=== PATIENT | female | born 1960 | race Caucasian/White ===

== ENCOUNTER → 2016-09-16 | Outpatient (CLI) | payer MEDICAID, OTHER ==
--- NOTE | 2016-09-17 13:43 | MM ---
Reason for exam: screening (asymptomatic). Last mammogram was performed 1 year and 2 months ago. History: Patient is postmenopausal and had first child at age 37. Physical Findings: A clinical breast exam by your physician is recommended on an annual basis and results should be correlated with mammographic findings. MG Screening Mammo w CAD Bilateral CC and MLO view(s) were taken. Prior study comparison: July 26, 2015, bilateral MG 3d screening mammo w/cad. December 21, 2014, right breast MG diagnostic mammo RT w CAD. There are scattered fibroglandular densities. There is chronic nodularity bilaterally. There is no dominant lesion. No significant changes when compared with prior studies. ASSESSMENT: Benign, BI-RAD 2 RECOMMENDATION: Routine screening mammogram of both breasts in 1 year.
== END | disposition home or self-care (01) ==
LOC: RADMAMWWP 09:52
PROVIDERS: ATTEND Internal Medicine
DX: Z12.31 Encounter for screening mammogram for malignant neoplasm of breast (principal)

== ENCOUNTER → 2017-04-03 | Outpatient (CLI) | payer MEDICAID, OTHER | END | disposition home or self-care (01) | LOC: LABPAT 12:41 | PROVIDERS: ATTEND Orthopaedic Surgery | DX: Z01.812 Encounter for preprocedural laboratory examination (principal) | CPT/HCPCS: 87070 ==

== ENCOUNTER 2017-04-20 09:29 | Inpatient (IN) | payer MEDICAID, OTHER ==
[2017-04-13 11:17] VITALS: BMI 44.1
--- NOTE | 2017-04-19 12:16 | HP ---
HISTORY AND PHYSICAL DATE OF SURGERY: 04/20/17 HISTORY OF PRESENT ILLNESS: Paloma Singh is a 56-year-old patient seen with progressive symptomatic right knee osteoarthritis. After having treatment options discussed, she elected to proceed with right total knee arthroplasty. Consent was obtained. Medical clearance was provided by Dr. Kumar. PAST MEDICAL HISTORY: Hypothyroidism and hypertension. PAST SURGICAL HISTORY: Knee arthroscopy, section. MEDICATIONS: 1. Thyroid. 2. Ibuprofen. 3. Moduretic. 4. Potassium. 5. Toprol. ALLERGIES: None reported. SOCIAL HISTORY: Patient denies tobacco use. PHYSICAL: Evaluation of the right knee range of motion is -3 to 120 degrees. Tenderness along the medial joint line. Positive medial Fuentes's. There is crepitus along the medial and patellofemoral compartments and range of motion. Pain with patellofemoral compression. Ligaments stable. Hip rotation without pain. Distal neurovascular exam is intact. RADIOGRAPHS: Of the right knee revealed severe medial and moderate to severe patellofemoral compartment osteoarthritis. IMPRESSION: Right knee osteoarthritis. PLAN: Right total knee arthroplasty. Surgery is scheduled for 04/20/2017. MMODL / IJN: [id number] /
[~2017-04-20 09:29] MED LIST: ACETAMINOPHEN TAB 500 MG TAB PO ONE; DEXAMETHASONE SOD PHOSPHATE 10 MG/ML 1 ML VIAL IV ONE; HYDROmorphone 0.5 MG/0.5 ML SYRINGE IVP PRN; MELOXICAM 7.5 MG TAB PO ONE; MIDAZOLAM 2 MG/2 ML VIAL IV PRN; ONDANSETRON 4 MG/2 ML VIAL IVP ONE; SCOPOLAMINE 1.5MG/72HR PATCH TRANSDERM ONE; TRANEXAMIC ACID 1,000 MG in SODIUM CHLORIDE 0.9% 100 ML IVPB ONE; ceFAZolin 2 GM in SODIUM CHLORIDE 0.9% 100 ML IVPB ONE
[2017-04-20] MEDS ORDERED: LACTATED RINGERS 1,000 ML IV ONE ×2 (11:16→14:06)
[2017-04-20 11:17] LABS: Glucose,Whole Blood 117 mg/dL (75-99)
[2017-04-20] MEDS ORDERED: MIDAZOLAM 2 MG/2 ML VIAL IVP ONE (12:10)
[2017-04-20] MEDS ORDERED: ROPIVACAINE 246.25 MG, EPINEPHrine 0.5 MG, KETOROLAC 30 MG, cloNIDine HCL/PF 80 MCG, WA... MISCELLANE ONE ×5 (12:20)
[2017-04-20] MEDS ORDERED: ROPIVACAINE 1,100 MG, SODIUM CHLORIDE 0.9% 330 ML MISCELLANE PRN ×2 (12:34)
--- NOTE | 2017-04-20 12:35 | P.ONQ ---
Anesthesiology Proc Note - PNB - Peripheral Nerve Block Performed Right Adductor Canal Indication: Acute Post-Operative Pain, Requested by physician (Dr Cronin) Sedation Type: Sedate with meaningful contact maintained Preparation: Sterile Dressing Position: Supine Catheter: Indwelling Needle Types: Other (see comment) (Gay) Needle Size: 100mm (4") Needle Gauge: 18 Technique: Ultrasound (20cc) Injectate: 0.5% Ropivacaine (see comment for volume) (20cc) Blood Aspirated: No Pain Paresthesia on Injection Noted: No Resistance on Injection: Normal Events: Uneventful and Well Tolerated
[2017-04-20] MEDS ORDERED: MIDAZOLAM 2 MG/2 ML VIAL ONE (13:14)
[2017-04-20] MEDS ORDERED: HYDROmorphone (PF) 1 MG/ML ONE (13:14)
[2017-04-20] MEDS ORDERED: LIDOCAINE 1% INJ 10MG/ML (20 ML MDV) ONE (13:14)
[2017-04-20] MEDS ORDERED: LABETALOL 5 MG/ML VIAL MDV ONE (13:14)
[2017-04-20] MEDS ORDERED: SODIUM CHLORIDE 0.9% 100 ML BAG ONE (13:14)
[2017-04-20] MEDS ORDERED: PROPOFOL 10 MG/ML 20 ML VIAL IV ONE (13:14)
[2017-04-20] MEDS ORDERED: TRANEXAMIC ACID 1,000 MG/10 ML VIAL ONE (13:14)
[2017-04-20] MEDS ORDERED: SUCCINYLCHOLINE CHLORIDE 100 MG/5 ML SYR IV ONE (13:14)
[2017-04-20] MEDS ORDERED: fentaNYL (PF) 50 MCG/ML 2 ML AMP ONE (13:14)
[2017-04-20] MEDS ORDERED: ceFAZolin 3,000 MG in SODIUM CHLORIDE 0.9% IRRIGATIO 3,000 ML IRRIGATION ONE (14:06)
[2017-04-20] MEDS ORDERED: HYDROmorphone 1 MG/ML 1 ML SYRINGE IVP PRN (15:46)
[2017-04-20] MEDS ORDERED: ONDANSETRON 4 MG/2 ML VIAL IVP PRN (15:46)
[2017-04-20] MEDS ORDERED: HYDROmorphone 0.5 MG/0.5 ML SYRINGE IVP PRN ×2 (15:46)
[2017-04-20] MEDS ORDERED: hydrOXYzine PAMOATE 25 MG CAP PO PRN (15:46)
[2017-04-20] MEDS ORDERED: HYDROcodone/APAP 7.5-325MG 1 EACH TAB PO PRN (15:46)
[2017-04-20] MEDS ORDERED: NALOXONE 0.4 MG/ML 1 ML VIAL IV PRN (15:46)
--- NOTE | 2017-04-20 15:46 | P.OP ---
Date of Procedure: 04/20/17 Preoperative Diagnosis: Right knee osteoarthritis Postoperative Diagnosis: Right knee osteoarthritis Procedure(s) Performed: Right total knee arthroplasty Implants: 1. Tangela persona size 5 right narrow cruciate retaining cemented femur 2. Tangela persona size C right cemented tibial tray 3. Tangela persona 16mm medial congruent polyethylene tibial insert 4. Tangela persona 28 mm all polyethylene cemented patella Anesthesia: regional (Adductor canal catheter), local, spinal Surgeon: Miguel Cronin Night Auditor #1: Mike Mcneal Estimated Blood Loss (ml): 200 Pathology: none sent (Bone) Condition: stable Disposition: PACU Indications for Procedure: 56-year-old patient seen with symptomatic right knee osteoarthritis. After treatment options were discussed, she elected to proceed with right total knee arthroplasty. Operative Findings: see description of procedure Description of Procedure: Patient was taken to the operative suite after having a adductor canal catheter placed by the department of anesthesia. Patient underwent a spinal anesthetic by the department of anesthesia. Patient was given preoperative IV intake antibiotics and TXA. A well-padded tourniquet was placed about the right lower extremity. The lower extremity was then prepped and draped in the normal sterile orthopedic fashion. A standard anterior incision was made sharply through skin. Dissection was taken down through the subcutaneous soft tissues down to the extensor mechanism. A medial arthrotomy was performed, patella was everted and knee was flexed. There was advanced osteoarthritis noted. A proximal tibial cutting guide was positioned. Proximal tibial cut was made. A distal intramedullary femoral cutting guide was positioned, distal femoral cut made. At this point the tourniquet was insufflated to 350. We placed the appropriate sizing guide and selected the appropriate size. A distal 4-in-1 femoral cutting block was positioned, distal femoral cuts were made. We now placed a trial femoral component into position, along with an appropriate size tibial tray and insert. We now took the knee through range of motion and had full extension good flexion and good overall soft tissue balance noted. The patella was everted and a flush cut made with patellar quad tendon. We templated the patella, appropriate drill holes were made. An appropriate trial patella was positioned, knee was taken through full range of motion with the patella tracking very nicely. The trial patella was removed. Drill holes were made through the femoral component. All trial components were removed after marking off the appropriate rotation of the tibia. Retractors were now positioned along the proximal tibia. An appropriate keel punch was made with the appropriate size tibial guide. At this point appropriate size implants were chosen and opened. The joint was irrigated copiously with pulse lavage mechanical irrigation. The deep soft tissues were infiltrated local analgesic. We mixed antibiotic methylmethacrylate. Once the methyl methacrylate was ready, the tibial component was cemented into place removing any excess methylmethacrylate. The femoral component was cemented into place removing the removing any excess methylmethacrylate. We then inserted the appropriate size polyethylene tibial insert. We made sure that it was locked into position. We took the knee into full extension, and then back in a flexion making sure we had removed any excess methylmethacrylate. He did note at this point some hyperextension of the joint but decided to go ahead and proceed with achieving good cement fixation. The patellar component was then cemented down and secured with clamp. Excess methylmethacrylate removed. We kept the knee in full extension, patellar clamp in position until methylmethacrylate had hardened. Once it had hardened the patellar clamp was removed. The knee was taken through full range of motion. The patella tracked nicely. Again noted hyperextension. At this point the polyethylene tibial insert was removed. We placed a couple of trials getting ourselves to the correct size making sure we had good stability especially at terminal extension. We opened up the appropriate size polyethylene tibial insert and secured it. We now again took the knee through range of motion. We have full extension. There was good soft tissue balancing. The tourniquet was now released. Additional hemostasis was achieved via electrocautery. I can gram of TXA was given. The superficial soft tissues were infiltrated local analgesic. The extensor mechanism was repaired with Vicryl. We checked the repair with range of motion and it was stable. The subcutaneous soft tissues were repaired with Vicryl in layers. The skin was approximated with pernio/Dermabond. Sterile dressings were applied followed by loose web roll and Ad bandage. The patient was transferred to a bed, and taken to recovery in stable and satisfactory condition. Cleve UMANA assisted with the procedure.
--- NOTE | 2017-04-20 16:15 | XR ---
EXAMINATION TYPE: XR knee limited RT DATE OF EXAM: 04/20/2017 CLINICAL HISTORY: Postoperative evaluation Two views of the right knee are submitted. Identified are changes of total knee arthroplasty with femoral and tibial components appearing well seated. Postsurgical soft tissue changes are noted. Alignment is anatomic.
[2017-04-20 16:50] LABS: Glucose,Whole Blood 175 mg/dL (75-99)
[2017-04-20] MEDS: LACTATED RINGERS 1,000 ML IV SCH ×3 (18:08→20:06)
[2017-04-20] MEDS: traMADol 50 MG TAB PO SCH ×2 (18:11→20:44)
[2017-04-20] MEDS: ceFAZolin 2 GM in SODIUM CHLORIDE 0.9% 100 ML IVPB SCH (20:06)
[2017-04-20 20:08] LABS: Glucose,Whole Blood 150 mg/dL (75-99)
[2017-04-20] MEDS: INSULIN LISPRO (humaLOG) 300 UNIT/3 ML VIAL SQ SCH (20:44)
[2017-04-20] MEDS ORDERED: SENNOSIDES-DOCUSATE SODIUM 1 EACH TAB PO SCH (21:00)
[2017-04-21] MEDS: HYDROcodone/APAP 7.5-325MG 1 EACH TAB PO PRN ×3 (01:06→13:55)
[2017-04-21] MEDS: LACTATED RINGERS 1,000 ML IV SCH (05:40)
[2017-04-21] MEDS: ceFAZolin 2 GM in SODIUM CHLORIDE 0.9% 100 ML IVPB SCH (05:47)
--- NOTE | 2017-04-21 06:14 | P.PN ---
Progress Note - Text The patient is status post right adductor canal catheter placement. The catheter was placed for postoperative pain control, status post total right arthroplasty. Ropivacaine 0.2% is infusing at 8 mLs per hour. The patient has no complaints of right lower extremity numbness or weakness. Patient's VAS score is 0-1 -10. Assessment: Patient's adductor canal catheter is in place and working appropriately. Plan: continue infusion and adjust it as needed.
[2017-04-21 07:01] LABS: Glucose,Whole Blood 121 mg/dL (75-99)
[2017-04-21 07:25] LABS: Basophils % (A) 0 %; CH 29.6; CHCM 31.1; Eosinophils % (A) 0 %; HCT 35.1 % (34.0-46.0); HDW 2.34; HGB 11.1 gm/dL (11.4-16.0); Hypochromasia Slight; Luc # (Auto) 0.33; Luc % (Auto) 2; Lymphocytes # (A) 3.1 k/uL (1.0-4.8); Lymphocytes % (A) 22 %; MCH 30.4 pg (25.0-35.0); MCHC 31.8 g/dL (31.0-37.0); MCV 95.8 fL (80.0-100.0); Monocytes # (A) 0.8 k/uL (0-1.0); Monocytes % (A) 6 %; Neutrophils # (A) 9.6 k/uL (1.3-7.7); Neutrophils % (A) 69 %; RBC 3.66 m/uL (3.80-5.40); RDW 12.8 % (11.5-15.5); WBC (Perox) 14.75
[2017-04-21] MEDS ORDERED: metFORMIN 500 MG TAB PO SCH (07:30)
--- NOTE | 2017-04-21 07:33 | CONS ---
CONSULTATION DATE OF SERVICE: 04/20/2017 REASON FOR CONSULTATION: Advice regarding diabetes mellitus and other medications requested by Dr. Cronin. HISTORY OF PRESENT ILLNESS: This 56-year-old woman with past medical history of diabetes mellitus, hypertension, hyperlipidemia being followed by Dr. Kumar in the outpatient setting admitted after right knee joint arthroplasty. The blood sugars are between 150 and 160. There is no history of fever, rigors. No history of headache, loss of conscious or seizures. PAST MEDICAL HISTORY: 1. Diabetes. 2. Hypertension. 3. Hyperlipidemia. 4. History of degenerative joint disease. MEDICATIONS: Prior to admission include home medications: 1. Glucophage 1000 mg p.o. daily. 2. Moduretic 1 tab q.48h. 3. [place] thyroid 120 mg q.a.m. 4. Klor-Con 10 mEq q.a.m. 5. Multivitamins 1 p.o. daily. 6. Toprol-XL 25 mg q.h.s. 7. Advil 800 mg q.6h p.r.n. 8. TUMs 500 to 1000 mg t.i.d. p.r.n. 9. Biotin 5 mg p.o. daily. 10.Tylenol 325 to 650 q.4-6h p.r.n. ALLERGIES: None. FAMILY HISTORY: No history of heart disease or strokes in the family. SOCIAL HISTORY: No history of smoking. Occasional alcohol intake. REVIEW OF SYSTEMS: ENT: No diminished hearing or vision. CARDIOVASCULAR: No angina. RESPIRATION: No cough. GI: No nausea. : No dysuria. NERVOUS SYSTEM: No numbness or weakness. ALLERGY/IMMUNOLOGY: No asthma or hayfever. MUSCULOSKELETAL: As mentioned. HEMATOLOGY: No history of anemia. ENDOCRINE: As mentioned earlier. CONSTITUTIONAL: As mentioned earlier. DERMATOLOGY: Negative. RHEUMATOLOGY: Negative. PSYCHIATRY: As mentioned earlier. PHYSICAL EXAM: Patient is alert, oriented. Pulse is 91, blood pressure 130/66, respirations 16, temperature is normal. Pulse ox 99% on 3 L. HEENT: Conjunctivae normal. Oral mucosa moist. NECK: No jugular venous distention. No carotid bruit. No lymph node enlargement. CARDIOVASCULAR: S1, S2. RESPIRATORY: Breath sounds diminished in the bases. No rhonchi. No crackles. ABDOMEN: Soft, nontender. LEGS: Status post left knee arthroplasty. NERVOUS SYSTEM: Higher function as mentioned. Moves all four limbs. No focal motor sensory deficits. LYMPHATICS: No lymphadenopathy in the neck, axillae or groin. SKIN: No rash, ulcer or bleeding. LAB: CBC within normal limits. BMP showed AST and ALT 48 and 54 and cholesterol is 221. ASSESSMENT: 1. Status post right total knee arthroplasty. 2. Hypertension. 3. Diabetes type 2. 4. Hyperlipidemia. 5. History of degenerative joint disease. 6. Hypothyroidism. 7. History of cholecystectomy. RECOMMENDATIONS AND DISCUSSION: I recommend to continue current management and symptomatic treatment. Recommend resume the home medications. Accu-Cheks a.c. and q.h.s. and insulin scale. DVT prophylaxis. Will follow the patient closely with you and the patient may be asked to follow with Dr. Kumar closely after discharge. Thank you for letting us participate in the care of this patient. NICOLE / MARU: [id number] /
[2017-04-21] MEDS: traMADol 50 MG TAB PO SCH ×3 (07:52→17:39)
[2017-04-21] MEDS: INSULIN LISPRO (humaLOG) 300 UNIT/3 ML VIAL SQ SCH ×3 (08:49→17:39)
[2017-04-21] MEDS ORDERED: THYROID, PORK 30 MG TAB PO SCH (09:00)
[2017-04-21] MEDS ORDERED: POTASSIUM CHLORIDE ER 20 MEQ TAB.ER PO SCH (09:00)
[2017-04-21] MEDS ORDERED: aMILoride-HCTZ 5-50 mg 1 EACH TAB PO SCH (09:00)
[2017-04-21] MEDS ORDERED: MELOXICAM 7.5 MG TAB PO SCH (09:00)
[2017-04-21] MEDS ORDERED: FAMOTIDINE 20 MG TAB PO SCH (09:00)
[2017-04-21] MEDS ORDERED: ENOXAPARIN 30 MG/0.3 ML SYRINGE SQ SCH (09:00)
[2017-04-21] MEDS ORDERED: METOPROLOL SUCCINATE (ER) 25 MG TAB.ER.24H PO SCH (09:00)
[2017-04-21 10:13] LABS: Hemoglobin A1C 6.2 % (4.2-6.1)
[2017-04-21 10:30] LABS: Anion Gap 9 mmol/L; Blood Urea Nitrogen 13 mg/dL (7-17); Calcium 8.7 mg/dL (8.4-10.2); Carbon Dioxide 23 mmol/L (22-30); Chloride 108 mmol/L (98-107); Glucose 115 mg/dL (74-99); Non-African American GFR(MDRD) >60 (>60 ml/min/1.73 sqM); Sodium 140 mmol/L (137-145)
[2017-04-21 11:11] VITALS: RESP 16; TEMP 99
[2017-04-21 11:25] LABS: Glucose,Whole Blood 132 mg/dL (75-99)
[2017-04-21 12:52] LABS: Appearance,Urine Cloudy (Clear); Bacteria,Urine Occasional /hpf; Bilirubin,Urine Negative (Negative); Glucose,Urine (UA) Negative (Negative); Ketones,Urine Negative (Negative); Leukocyte Esterase,Urine Large (Negative); Nitrite,Urine Negative (Negative); Particle Count 2797; Protein,Urine Negative (Negative); RBC,Urine 3 /hpf (0-5); Specific Gravity,Urine 1.022 (1.001-1.035); Squamous Epithelial Cell,Urine 13 /hpf (0-4); UA Billing (MACRO vs. MICRO) MICRO; Urobilinogen,Urine <2.0 mg/dL (<2.0); WBC,Urine 17 /hpf (0-5)
--- NOTE | 2017-04-21 13:28 | P.PN ---
Subjective Principal diagnosis: Status post right total knee arthroplasty Patient seen today resting in her hospital bed, she appears comfortable. She does have some family side. She's ambulated well with therapy. Urinary cath was discontinued. She denies any headaches, lightheadedness, chest pain, shortness of breath. Objective - Vital Signs Vital signs: Vital Signs Temp 99.0 F 04/21/17 11:10 Pulse 76 04/21/17 11:10 Resp 16 04/21/17 11:10 BP 90/48 04/21/17 11:10 Pulse Ox 95 04/21/17 11:10 Intake & Output 04/20/17 04/21/17 04/21/17 18:59 06:59 18:59 Intake Total 1701 850 Output Total 410 325 180 Balance 1291 525 -180 Weight 112.945 kg Intake: IV 1701 Intake, IV Titration 450 Amount Lactated Ringers 1,000 ml 350 @ 100 mls/hr IV .Q10H ANTHONY Rx#:[id number] ceFAZolin 2 gm In Sodium 100 Chloride 0.9% 100 ml @ 100 mls/hr IVPB Q8H ANTHONY Rx#:[id number] Oral 400 Output: Urine 210 325 180 Uretheral ([place]) 325 180 Estimated Blood Loss 200 Other: Voiding Method Indwelling Catheter Indwelling Catheter Indwelling Catheter - Exam Right lower extremity: Incision is clean, dry and intact. Minimal soft tissue swelling present around the knee. Calf is soft, tenderness with palpation. Plantar flexion, dorsiflexion, EHL, FHL are intact. Sensory exam to light touch throughout the extremities intact, dorsal pedis pulses 2+ - Labs CBC & Chem 7: 04/21/17 06:35 04/21/17 06:35 Labs: Abnormal Lab Results - Last 24 Hours (Table) 04/20/17 04/20/17 04/21/17 Range/Units 16:47 20:05 06:35 WBC (3.8-10.6) k/uL RBC (3.80-5.40) m/uL Hgb (11.4-16.0) gm/dL Neutrophils # (1.3-7.7) k/uL Chloride (98-107) mmol/L Glucose (74-99) mg/dL POC Glucose (mg/dL) 175 H 150 H (75-99) mg/dL Hemoglobin A1c 6.2 H (4.2-6.1) % Urine Appearance (Clear) Ur Leukocyte Esterase (Negative) Urine WBC (0-5) /hpf Ur Squamous Epith Cells (0-4) /hpf Urine Bacteria (None) /hpf 04/21/17 04/21/17 04/21/17 Range/Units 06:35 06:35 06:50 WBC 14.0 H (3.8-10.6) k/uL RBC 3.66 L (3.80-5.40) m/uL Hgb 11.1 L (11.4-16.0) gm/dL Neutrophils # 9.6 H (1.3-7.7) k/uL Chloride 108 H (98-107) mmol/L Glucose 115 H (74-99) mg/dL POC Glucose (mg/dL) 121 H (75-99) mg/dL Hemoglobin A1c (4.2-6.1) % Urine Appearance (Clear) Ur Leukocyte Esterase (Negative) Urine WBC (0-5) /hpf Ur Squamous Epith Cells (0-4) /hpf Urine Bacteria (None) /hpf 04/21/17 04/21/17 Range/Units 11:00 11:21 WBC (3.8-10.6) k/uL RBC (3.80-5.40) m/uL Hgb (11.4-16.0) gm/dL Neutrophils # (1.3-7.7) k/uL Chloride (98-107) mmol/L Glucose (74-99) mg/dL POC Glucose (mg/dL) 132 H (75-99) mg/dL Hemoglobin A1c (4.2-6.1) % Urine Appearance Cloudy H (Clear) Ur Leukocyte Esterase Large H (Negative) Urine WBC 17 H (0-5) /hpf Ur Squamous Epith Cells 13 H (0-4) /hpf Urine Bacteria Occasional H (None) /hpf Assessment and Plan Plan: Assessment: 1. Postop day 1 status post right total knee arthroplasty Plan: 1. Pain control, utilize oral medication 2. Continue work with therapy and use of CPM 3. Wound care instructions discussed, including showering 4. GI and DVT prophylaxis, utilizing aspirin 325 mg twice a day 5. Medical recommendations 6. Discharge planning: Patient may be discharged home today Time with Patient: Less than 30
--- NOTE | 2017-04-21 13:33 | P.DS ---
Providers Date of admission: 04/20/17 10:51 Expected date of discharge: 04/21/17 Attending physician: Miguel Cronin Consults: 04/20/17 15:46 Consult Physician Routine Consulting Provider: Diane Auguste Consult Reason/Comments: Medical management Do you want consulting provider notified?: Yes Primary care physician: Priscilla Kumar Hospital Course: Date of admission: 04/20/2017 Date of discharge: 04/21/2017 Admission diagnosis: Status post right total knee arthroplasty Discharge diagnosis: Same Attending physician: Dr. Cronin Surgical procedures: Right total knee arthroplasty Brief history: Patient is a 56-year-old female with a history of progressive primary right knee osteoarthritis. At this point patient has failed conservative treatment measures and has opted to proceed with a elective right total knee arthroplasty. Hospital course: Details of patient's surgery can be found in operative report. Patient tolerated the procedure well and was subsequently transported to orthopedic floor. Patient's orthopeidc and medical care was provided daily. Patient had daily laboratory tests performed for evaluation of overall blood counts. Patient had daily physical therapy to include strengthening range of motion as well as education with walker ambulation. Patient had daily CPM usage as part of their physical therapy program. Patient was treated with Lovenox for their postoperative DVT prophylaxis during their inpatient stay. Patient was noted to have a relatively uneventful postoperative course. Patient reported satisfactory pain control with oral pain medications by postoperative day 0. Patient showed satisfactory progress with physical therapy. Patient moved steadily through the program and had no difficulty meeting the goals by postoperative day 1. Given patient's otherwise satisfactory course and having met physical therapy goals, plan is to discharge patient home on postoperative day 1. Discharge condition/disposition: Patient will be discharged home in stable condition. Discharge medications: Instructions are given on resumption of patient's normal daily medications per primary care recommendation, in addition patient will be prescribed [place] 7.5 mg/325 mg, tramadol 50 mg, Colace 100 mg, aspirin 325 mg. Discharge instructions: 1. Wound care and infection precautions, keep incision dry and covered while showering, no lotions, creams, moisturizers. No soaking, tubs, pools, hottubs. Do not scrub over the incision. 2. Weight-bear as tolerated with walker / cane until follow-up. 3. Ice and elevate when necessary. Do not exceed 20 minutes per hour with ice pack. 4. Utilize compression sleeve until seen at first follow up appointment. 5. Visiting nursing care. 6. Home physical therapy including home CPM. 7. Pain meds and anticoagulants per prescription. 8. Pain medication has potential to cause constipation. Increase oral fluid and fiber intake. Contact primary care provider if you have not had a bowel movement within 48 hours after discharge 9. No anti-inflammatory medication until discussed at first post operative visit, this including Motrin, Aleve, Mobic, Diclofenac. 10. Follow up in office at 2 weeks postop with Cleve Mcneal PA-C 11. Follow up with your primary care doctor 7-10 days after discharge. 12. Contact [facility] with any questions, . Procedures: Right total knee arthroplasty Patient Condition at Discharge: Good Plan - Discharge Summary New Discharge Prescriptions: New Aspirin 325 mg PO BID #60 tab Docusate [Colace] 100 mg PO DAILY #30 capsule HYDROcodone/APAP 7.5-325MG [[place] 7.5] 1 - 2 each PO Q6HR PRN #60 tab PRN Reason: Pain traMADol HCl [Ultram] 50 mg PO Q6H PRN #40 tab PRN Reason: Pain Levofloxacin [Levaquin] 500 mg PO DAILY #4 tab No Action Metoprolol Succinate (ER) [Toprol XL] 25 mg PO QAM aMILoride-HCTZ 5-50 mg [Moduretic 5-50] 1 tab PO Q48H Acetaminophen Tab [Tylenol] 325 - 650 mg PO Q4-6H PRN PRN Reason: Pain Biotin 5 mg PO DAILY Multivitamins, Thera [Multivitamin] 1 tab PO DAILY Potassium Chloride [Klor-Con 20] 20 meq PO QAM Thyroid,Pork [Urich Thyroid] 120 mg PO QAM Calcium Carbonate [Tums] 500 - 1,000 mg PO TID PRN PRN Reason: Indigestion metFORMIN HCL [Glucophage] 1,000 mg PO DAILY Discharge Medication List Acetaminophen Tab [Tylenol] 325 - 650 mg PO Q4-6H PRN 10/16/15 [History] Biotin 5 mg PO DAILY 10/16/15 [History] Metoprolol Succinate (ER) [Toprol XL] 25 mg PO QAM 10/16/15 [History] Multivitamins, Thera [Multivitamin] 1 tab PO DAILY 10/16/15 [History] Potassium Chloride [Klor-Con 20] 20 meq PO QAM 10/16/15 [History] Thyroid,Pork [Urich Thyroid] 120 mg PO QAM 10/16/15 [History] aMILoride-HCTZ 5-50 mg [Moduretic 5-50] 1 tab PO Q48H 10/16/15 [History] Calcium Carbonate [Tums] 500 - 1,000 mg PO TID PRN 04/13/17 [History] metFORMIN HCL [Glucophage] 1,000 mg PO DAILY 04/13/17 [History] Aspirin 325 mg PO BID #60 tab 04/21/17 [Rx] Docusate [Colace] 100 mg PO DAILY #30 capsule 04/21/17 [Rx] HYDROcodone/APAP 7.5-325MG [[place] 7.5] 1 - 2 each PO Q6HR PRN #60 tab 04/21/17 [ Rx] Levofloxacin [Levaquin] 500 mg PO DAILY #4 tab 04/21/17 [Rx] traMADol HCl [Ultram] 50 mg PO Q6H PRN #40 tab 04/21/17 [Rx] Follow up Appointment(s)/Referral(s): Mike Mcneal PAC [PHYSICIAN [facility]] - 05/06/17 1:50 pm [facility], [REFERRING] - Patient Instructions/Handouts: *Surgery [facility] - Scopalamine Patch Instructions Activity/Diet/Wound Care/Special Instructions: CPM through [facility]. Please call when arrive home. [phone]. Orthopedic Discharge Instructions: 1. Wound care and infection precautions, keep incision dry and covered while showering, no lotions, creams, moisturizers. No soaking, pools, hot tubs. Do not scrub over incision. 2. Weight-bear as tolerated with walker / cane until follow-up. 3. Ice and elevate when necessary. Do not exceed 20 minutes per hour with ice pack. 4. Utilize compression sleeve until seen at first follow up appointment. 5. Visiting nursing care. 6. Home physical therapy including home CPM. 7. Pain meds and anticoagulants per prescription. 8. Pain medication has potential to cause constipation. Increase oral fluid and fiber intake. Contact primary care provider if you have not had a bowel movement within 48 hours after discharge. 9. No anti-inflammatory medication until discussed at first post operative visit, this including Motrin, Aleve, Mobic, Diclofenac. 10. Follow up in office at 2 weeks postop with Cleve Mcneal PA-C 11. Follow up with your primary care doctor 7-10 days after discharge. 12. Contact [facility] with any questions, . Discharge Disposition: HOME WITH HOME HEALTH SERVICES
[2017-04-21 15:15] VITALS: BP 129/63; PULSE 82
[2017-04-21 16:53] LABS: Glucose,Whole Blood 140 mg/dL (75-99)
--- NOTE | 2017-04-21 19:12 | PN ---
PROGRESS NOTE DATE OF SERVICE: 04/21/2017 INTERVAL HISTORY: This 56-year-old woman who was admitted after right total knee arthroplasty is closely monitored. No chest pain. No palpitations. No fever. White count is elevated. PHYSICAL EXAMINATION: On exam, alert, oriented. Pulse 76, blood pressure 98/42, respirations 16, temperature 98 degrees, pulse ox 94% room air. HEENT: Conjunctivae normal. NECK: No jugular venous distention. CARDIOVASCULAR: S1, S2. RESPIRATORY: Breath sounds diminished at the bases. No rhonchi. No crackles. ABDOMEN: Soft, nontender. No mass palpable. LEGS: Status post surgery. NERVOUS SYSTEM: No focal abscess. WBC 14. UA noted. Possibly UTI. ASSESSMENT: 1. Status post right arthroplasty. 2. Possibly urinary tract infection. 3. Hypertension. 4. Diabetes mellitus type 2. 5. Hyperlipidemia. 6. History of degenerative joint disease. 7. Hypothyroidism. 8. History of cholecystectomy. RECOMMENDATIONS AND DISCUSSION: I recommend to continue the current management, continue symptomatic treatment. Otherwise at this time I would recommend to continue course of antibiotics and followup labs in the outpatient setting. Further recommendations to follow. MMODL / IJN: [id number] /
== END 2017-04-21 18:25 | disposition home health service (06) | DRG 470 ==
LOC: 2ORMAIN 10:51 → 3SUR 15:38
PROVIDERS: ADMIT Orthopaedic Surgery; ATTEND Orthopaedic Surgery
PROC: 0SRC0J9 Replacement of Right Knee Joint with Synthetic Substitute, Cemented, Open Approach (ICD-10-PCS; principal; 2017-04-20 12:40)
DX: M17.11 Unilateral primary osteoarthritis, right knee (principal); I10 Essential (primary) hypertension; E03.9 Hypothyroidism, unspecified; E11.9 Type 2 diabetes mellitus without complications; E78.5 Hyperlipidemia, unspecified; Z79.84 Long term (current) use of oral hypoglycemic drugs
CPT/HCPCS: 80048; 81001; 83036; 85025; 88300

== ENCOUNTER 2017-08-10 09:04 | Day surgery (SDC) | payer MEDICAID, OTHER ==
[2017-08-06 09:18] VITALS: BMI 42.8
--- NOTE | 2017-08-09 13:38 | HP ---
HISTORY AND PHYSICAL Surgery is scheduled for 08/10/2017. Paloma Singh is a 56-year-old patient seen with right knee adhesions with previously having undergone right total knee arthroplasty. Options were discussed. She elected to proceed with manipulation under anesthesia, right knee with steroid injection. Consent regarding the procedure was obtained. PAST MEDICAL HISTORY: Hypertension, hypothyroidism. PAST SURGICAL HISTORY: section, knee arthroscopy, total knee arthroplasty. DAILY MEDICATIONS: Thyroid, ibuprofen, Moduretic, potassium, Toprol. ALLERGIES: None reported. SOCIAL HISTORY: Patient denies current tobacco use. PHYSICAL EXAMINATION: Evaluation right knee: There is a well-healed anterior incision. Range of motion is - 1/2 to 95. Ligaments stable. Hip rotation without pain. Distal neurovascular exam intact. Right knee radiographs revealed a stable appearing total knee arthroplasty. IMPRESSION: 1. Right knee adhesions, status post right total knee arthroplasty. 2. Hypertension. 3. Hypothyroidism. PLAN: Manipulation under anesthesia, right knee with steroid injection. MMODL / IJN: [id number] /
[~2017-08-10 09:04] MED LIST changes: -ACETAMINOPHEN TAB 500 MG TAB PO ONE; -HYDROmorphone 0.5 MG/0.5 ML SYRINGE IVP PRN; +LACTATED RINGERS 1,000 ML IV SCH; -MELOXICAM 7.5 MG TAB PO ONE; +MORPHINE SULFATE 4 MG/ML SYRINGE IV PRN; -TRANEXAMIC ACID 1,000 MG in SODIUM CHLORIDE 0.9% 100 ML IVPB ONE; -ceFAZolin 2 GM in SODIUM CHLORIDE 0.9% 100 ML IVPB ONE; +ceFAZolin IN SWFI 2 GM/20 ML SYRINGE IVP ONE
[2017-08-10 09:24] LABS: Glucose,Whole Blood 112 mg/dL (75-99)
[2017-08-10] MEDS ORDERED: LIDOCAINE 1% 20 ML VIAL (10MG/ML) FOR IV START INTRADERMA ONE (09:26)
[2017-08-10] MEDS ORDERED: fentaNYL (PF) 50 MCG/ML 2 ML AMP ONE (09:50)
[2017-08-10] MEDS ORDERED: PROPOFOL 10 MG/ML 20 ML VIAL IV ONE (09:50)
[2017-08-10] MEDS ORDERED: MIDAZOLAM 2 MG/2 ML VIAL ONE (09:50)
[2017-08-10] MEDS ORDERED: BUPIVACAINE (PF) 0.25% 30 ML VIAL MISCELLANE ONE (09:50)
[2017-08-10] MEDS ORDERED: TRIAMCINOLONE ACETONIDE 40 MG/ML 1 ML VIAL INTRAARTIC ONE (09:50)
[2017-08-10] MEDS ORDERED: TRIAMCINOLONE ACETONIDE 40 MG/ML 1 ML VIAL ONE ×2 (09:50)
--- NOTE | 2017-08-10 10:03 | P.OP ---
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 I recommended manipulation under anesthesia right knee with steroid injection, patient was agreeable and consent was obtained. Operative Findings: See description of procedure Description of Procedure: The patient was taken to a monitored anesthesia area. The patient received IV sedation by the primary anesthesia. The patient received preoperative IV antibiotics. When sufficient anesthesia was achieved, a manipulation of the right knee was performed achieving full extension and 135 of flexion. The superior lateral aspect of the right knee was prepped and draped in the normal sterile orthopedic fashion. I injected a solution 1 mL Depo-Medrol and 3 mL quarter percent plain Marcaine. I now took the knee through range of motion again. I applied a sterile Band-Aid. The patient was then awakened having tolerated the procedure well.
[2017-08-10] MEDS: HYDROmorphone 1 MG/ML 1 ML SYRINGE IVP ONE ×3 (10:10→10:25)
[2017-08-10 10:15] VITALS: TEMP 98.5
[2017-08-10] MEDS ORDERED: KETOROLAC 30 MG/ML 1 ML VIAL IVP ONE (10:33)
[2017-08-10 10:51] VITALS: RESP 18
[2017-08-10 10:51] LABS: Glucose,Whole Blood 132 mg/dL (75-99)
[2017-08-10 11:03] VITALS: BP 113/61; PULSE 91
== END 2017-08-10 11:37 | disposition home or self-care (01) ==
LOC: OR 09:04
PROVIDERS: ATTEND Orthopaedic Surgery
DX: M23.8X1 Other internal derangements of right knee (principal); I10 Essential (primary) hypertension; E03.9 Hypothyroidism, unspecified; K21.9 Gastro-esophageal reflux disease without esophagitis; E11.9 Type 2 diabetes mellitus without complications; Z79.84 Long term (current) use of oral hypoglycemic drugs; Z79.1 Long term (current) use of non-steroidal anti-inflammatories (NSAID); Z79.899 Other long term (current) drug therapy
CPT/HCPCS: 84132; 27570; J2250; J1100; J2405; J3010; J1885; J1170; J2704

== ENCOUNTER → 2017-12-15 | Outpatient (CLI) | payer MEDICAID, OTHER | END | disposition home or self-care (01) | LOC: RADMRIMAIN 09:37 | PROVIDERS: ATTEND Orthopaedic Surgery | DX: Z53.9 Procedure and treatment not carried out, unspecified reason (principal) ==

== ENCOUNTER → 2018-01-19 | Outpatient (CLI) | payer MEDICAID, OTHER ==
--- NOTE | 2018-01-21 11:39 | MM ---
Reason for exam: screening (asymptomatic). Last mammogram was performed 1 year and 4 months ago. History: Patient is postmenopausal and had first child at age 37. Physical Findings: A clinical breast exam by your physician is recommended on an annual basis and results should be correlated with mammographic findings. MG Screening Mammo w CAD Bilateral CC and MLO view(s) were taken. Prior study comparison: September 16, 2016, bilateral MG screening mammo w CAD. July 26, 2015, bilateral MG 3d screening mammo w/cad. There are scattered fibroglandular densities. There is chronic nodularity bilaterally. No significant changes when compared with prior studies. ASSESSMENT: Benign, BI-RAD 2 RECOMMENDATION: Routine screening mammogram of both breasts in 1 year.
== END | disposition home or self-care (01) ==
LOC: RADMAMWWP 14:40
PROVIDERS: ATTEND Internal Medicine
DX: Z12.31 Encounter for screening mammogram for malignant neoplasm of breast (principal)
CPT/HCPCS: 77067

== ENCOUNTER → 2018-06-16 | Outpatient (CLI) | payer MEDICAID, OTHER ==
--- NOTE | 2018-06-16 08:23 | US ---
EXAMINATION TYPE: US liver DATE OF EXAM: 06/16/2018 COMPARISON: NONE CLINICAL HISTORY: K76.89 Abnormal liver function. EXAM MEASUREMENTS: Liver Length: 16.3 cm Gallbladder Wall: Surgically absent cm CBD: 0.4 cm Right Kidney: 10.2 x 6.4 x 5.0 cm Pancreas: Partially Obscured by bowel gas Liver: Partially Obscured by overlying bowel gas Gallbladder: Surgically absent Evidence for sonographic Carroll's sign: No CBD: wnl Right Kidney: wnl Suboptimal exam overall d/t large patient size and large amounts of bowel gas. IMPRESSION: Limited examination. No distinct abnormality appreciated.
== END ==
LOC: RADUSWWP 07:27
PROVIDERS: ATTEND Internal Medicine
DX: K76.89 Other specified diseases of liver (principal)
CPT/HCPCS: 76705

== ENCOUNTER → 2020-06-07 | Outpatient (CLI) | payer OTHER ==
--- NOTE | 2020-06-11 08:52 | MM ---
Reason for exam: screening (asymptomatic). Last mammogram was performed 2 years and 5 months ago. History: Patient is postmenopausal and had first child at age 37. Physical Findings: A clinical breast exam by your physician is recommended on an annual basis and results should be correlated with mammographic findings. MG Screening Mammo w CAD Bilateral CC, MLO, and XCCL view(s) were taken. Prior study comparison: January 19, 2018, bilateral MG screening mammo w CAD. September 16, 2016, bilateral MG screening mammo w CAD. There are scattered fibroglandular densities. There is chronic nodularity bilaterally. No significant changes when compared with prior studies. ASSESSMENT: Benign, BI-RAD 2 RECOMMENDATION: Routine screening mammogram of both breasts in 1 year.
== END | disposition home or self-care (01) ==
LOC: RADMAMWWP 13:16
PROVIDERS: ATTEND Internal Medicine
DX: Z12.31 Encounter for screening mammogram for malignant neoplasm of breast (principal)
CPT/HCPCS: 77067

== ENCOUNTER → 2021-09-04 | Outpatient (CLI) | payer OTHER ==
--- NOTE | 2021-09-05 14:18 | MM ---
Reason for exam: screening (asymptomatic). Last mammogram was performed 1 year and 3 months ago. History: Patient is postmenopausal and had first child at age 37. Physical Findings: A clinical breast exam by your physician is recommended on an annual basis and results should be correlated with mammographic findings. MG 3D Screening Mammo W/Cad Bilateral CC and MLO view(s) were taken. Prior study comparison: June 07, 2020, bilateral MG screening mammo w CAD. January 19, 2018, bilateral MG screening mammo w CAD. There are scattered fibroglandular densities. There is chronic nodularity bilaterally. There is no discrete abnormality. ASSESSMENT: Benign, BI-RAD 2 RECOMMENDATION: Routine screening mammogram of both breasts in 1 year.
== END | disposition home or self-care (01) ==
LOC: RADMAMWWP 11:19
PROVIDERS: ATTEND Family Medicine
DX: Z12.31 Encounter for screening mammogram for malignant neoplasm of breast (principal); Z78.0 Asymptomatic menopausal state
CPT/HCPCS: 77063; 77067

== ENCOUNTER → 2022-10-27 | Outpatient (CLI) | payer BC, OTHER ==
--- NOTE | 2022-11-03 23:00 | HM ---
HOLTER MONITOR REPORT STUDY PERFORMED: A 24-hour Holter. INDICATION: Palpitations. Underlying rhythm is sinus with an average heart rate of 89 beats per minute. Heart rate varied from 50 beats per minute to 140 beats per minute. The episode of tachycardia seems to be an episode of sinus tachycardia. Occasional PACs are noted. There were no episodes of sustained ventricular or supraventricular tachyarrhythmias. No episodes of more than 2-second pauses. CONCLUSION: This 24-hour Holter reveals sinus rhythm with episodes of sinus tachycardia. MMODL / IJN: [id number] /
== END | disposition home or self-care (01) ==
LOC: RADECHMAIN 07:55
PROVIDERS: ATTEND Family Medicine
DX: R00.0 Tachycardia, unspecified (principal); R00.2 Palpitations; I10 Essential (primary) hypertension
CPT/HCPCS: 93225; 93226

== ENCOUNTER → 2024-06-24 | Outpatient (CLI) | payer BC ==
--- NOTE | 2024-06-27 09:05 | MM ---
Reason for Exam: Screening (asymptomatic). Last mammogram was performed 1 year(s) and 3 month(s) ago. Patient History: Menarche at age 11. First Full-Term at age 37. Late child-bearing (after 30). Postmenopausal. Risk Values: Melly 5 year model risk: 2.2%. NCI Lifetime model risk: 8.9%. Prior Study Comparison: 06/07/2020 Bilateral Screening Mammogram, [facility]. 09/04/2021 Bilateral Screening Mammogram, [facility]. 04/17/2023 Bilateral MG 3D screening mammo w/cad, [facility]. Tissue Density: There are scattered areas of fibroglandular density. Findings: Analyzed By CAD. Right breast: There is no suspicious group of microcalcifications or new suspicious mass. Benign-appearing calcifications right breast. Stable fibroglandular tissue. Left breast: There is no suspicious group of microcalcifications or new suspicious mass. Benign-appearing calcifications left breast. Stable fibroglandular tissue. Overall Assessment: Benign, BI-RAD 2 Management: Screening Mammogram of both breasts in [address] [facility] will attempt to contact patient to return for supplemental views and ultrasound if indicated. Patient should continue monthly self-breast exams. A clinical breast exam by your physician is recommended on an annual basis. This exam should not preclude additional follow-up of suspicious palpable abnormalities. Note on Melly scores and lifetime risk: 1. A Melly score greater than 3% is considered moderate risk. If this is the case, consider specialist referral to assess eligibility for a risk reducing agent. 2. If overall lifetime risk for the development of breast cancer is 20% or higher, the patient may qualify for future screening with alternating mammogram and breast MRI. [facility], , 06/27/2024 8:59 AM. Electronically signed and approved by: Gunnar Corley DO
== END | disposition home or self-care (01) ==
LOC: RADMAMWWP 15:53
PROVIDERS: ATTEND Family Medicine
DX: Z12.31 Encounter for screening mammogram for malignant neoplasm of breast (principal); Z78.0 Asymptomatic menopausal state; R92.323 Mammographic fibroglandular density, bilateral breasts
CPT/HCPCS: 77067